=== PATIENT | female | born 1970 | race African-American/Black ===

== ENCOUNTER 2017-01-06 12:41 | Inpatient (IN) | payer MEDICAID, OTHER ==
[~2017-01-06] VITALS: Ht 165.1 cm; Wt 78.2 kg
[2017-01-06] MEDS ORDERED: PARO10TA89 PO (12:59)
[2017-01-06] MEDS ORDERED: ARIP2 PO (12:59)
[2017-01-06] MEDS ORDERED: DIPH25 PO (12:59)
[2017-01-06] MEDS ORDERED: IBUP-1681 PO (12:59)
[2017-01-06] MEDS ORDERED: CLON.5 PO (12:59)
[2017-01-06 13:27] LABS: BASOPHILS % (AUTO) 0.6 % (0.0-2.0); EOSINOPHILS % (AUTO) 1.8 % (1.0-6.0); HEMATOCRIT 36.3 % (36-46); HEMOGLOBIN 11.6 g/dL (12.0-16.0); LYMPHOCYTES # (AUTO) 1.7 K/uL (1.0-4.8); LYMPHOCYTES % (AUTO) 28.3 % (22.0-44.0); MEAN CORPUSCULAR HEMOGLOBIN 24.2 pg (26.0-34.0); MEAN CORPUSCULAR HGB CONC 31.9 G/dL (31.0-37.0); MEAN CORPUSCULAR VOLUME 76 fL (80-100); MONOCYTES # (AUTO) 0.4 K/uL (0.1-1.0); NEUTROPHILS # (AUTO) 3.7 K/uL (1.8-7.7); NEUTROPHILS % (AUTO) 62.3 % (40.0-70.0); PLATELET COUNT (AUTO) 193 K/uL (150-450); RED BLOOD CELL COUNT(AUTO) 4.79 MIL/uL (4.00-5.20); RED CELL DISTRIBUTION WIDTH 19.3 % (11.5-14.5)
[2017-01-06 13:39] LABS: ANION GAP 12 mmol/L (8-16); CALCIUM, TOTAL 8.8 mg/dL (8.8-10.5); CARBON DIOXIDE 25 mmol/L (22-29); CHLORIDE 103 mmol/L (98-107); CREATININE 0.75 mg/dL (0.60-1.30); GLOMERULAR FILTR. RATE CALC > 60 mL/min (>60); POTASSIUM 3.6 mmol/L (3.5-5.1); SODIUM SERUM 140 mmol/L (136-145); UREA NITROGEN, BLOOD 10 mg/dL (7-18)
[2017-01-06 13:43] LABS: ALANINE AMINOTRANSFERASE 27 U/L (12-78); ALBUMIN 3.5 g/dL (3.4-5.0); ASPARTATE AMINOTRANSFERASE 22 U/L (15-37); BILIRUBIN,TOTAL 0.2 mg/dL (0.1-1.0); TOTAL PROTEIN, SERUM 7.7 g/dL (6.4-8.2)
[2017-01-06 13:49] LABS: RBC MORPHOLOGY COMMENT ABNORMAL RBC MORPH
[2017-01-06] MEDS ORDERED: ZOLPIDEM TARTRATE 10 MG TABLET PO PRN (14:15)
[2017-01-06] MEDS ORDERED: HALOPERIDOL 5 MG TABLET PO PRN (14:15)
[2017-01-06 17:37] VITALS: BP 116/79
[2017-01-06 22:00] LABS: APPEARANCE,URINE CLOUDY (CLEAR); GLUCOSE, URINE (UA) NEGATIVE (NEGATIVE); KETONES,URINE NEGATIVE (NEGATIVE); LEUKOCYTE ESTERASE ,URINE NEGATIVE (NEGATIVE); OCCULT BLOOD,URINE LARGE (NEGATIVE); PROTEIN,URINE NEGATIVE (NEGATIVE)
[2017-01-06 22:01] LABS: ADD UA MICROSCOPIC YES
[2017-01-06 22:21] LABS: RBC,URINE 0-2 /HPF (0-2); SQUAMOUS EPITHELIAL CELL,UR Few /LPF (None Seen); WBC,URINE 0-2 /HPF (0-5)
[2017-01-07] MEDS ORDERED: CloNIDine HCL 0.1 MG TABLET PO PRN (08:45)
[2017-01-07] MEDS ORDERED: BENZOCAINE/MENTHOL LOZENGE MM PRN (08:45)
[2017-01-07] MEDS ORDERED: LOPERAMIDE HCL 2 MG CAPSULE PO PRN (08:45)
[2017-01-07] MEDS ORDERED: MAG HYDROX/AL HYDROX/SIMETH ES 30 ML SUSPENSION UDCUP PO PRN (08:45)
[2017-01-07] MEDS ORDERED: PETROLATUM,WHITE 71 GM JELLY TP PRN (08:45)
[2017-01-07] MEDS ORDERED: ACETAMINOPHEN 325 MG TABLET PO PRN (08:45)
[2017-01-07] MEDS ORDERED: ALBUTEROL SULFATE HFA 90 MCG/PUFF 8 GM INHALER IH PRN (08:45)
[2017-01-07] MEDS ORDERED: ONDANSETRON HCL 4 MG TABLET PO PRN (08:45)
[2017-01-07] MEDS ORDERED: BACITRACIN 28.4 GM OINTMENT TP PRN (08:45)
[2017-01-07] MEDS ORDERED: MAGNESIUM HYDROXIDE SUSPENSION 30 ML UDCUP PO PRN (08:45)
[2017-01-07] MEDS ORDERED: IBUPROFEN 600 MG TABLET PO PRN (08:45)
[2017-01-07] MEDS ORDERED: BENZOCAINE/MENTHOL LOZENGE [8 LOZENGES/PACKET] MM PRN (08:48)
[2017-01-07 08:51] VITALS: BP 128/81
[2017-01-07] MEDS: LORazepam 2 MG TABLET PO PRN (10:53)
[2017-01-07 17:01] VITALS: BP 114/73
[2017-01-08 09:02] VITALS: BP 139/90
[2017-01-08] MEDS: LORazepam 2 MG TABLET PO PRN ×2 (09:03→17:55)
[2017-01-08] MEDS ORDERED: DICLOFENAC SODIUM 1% 100 GM GEL [2GM] TP PRN (12:15)
[2017-01-08 17:30] VITALS: BP 133/85
[2017-01-09 07:30] LABS: CHOL/HDL RATIO 2.7 (3.9-5.7)
[2017-01-09] MEDS ORDERED: CITA20TA9 PO (08:16)
[2017-01-09] MEDS ORDERED: CITALOPRAM HYDROBROMIDE 20 MG TABLET PO SCH (09:00)
== END 2017-01-09 14:15 | disposition home or self-care (01) | DRG 754 ==
LOC: EMS 12:41 → 3EI 16:37
PROVIDERS: ADMIT Psychiatry & Neurology Psychiatry; ATTEND Psychiatry & Neurology Psychiatry
DX: F32.9 Major depressive disorder, single episode, unspecified (principal); J44.9 Chronic obstructive pulmonary disease, unspecified; R45.851 Suicidal ideations; F31.9 Bipolar disorder, unspecified; J45.909 Unspecified asthma, uncomplicated; F17.210 Nicotine dependence, cigarettes, uncomplicated; F15.90 Other stimulant use, unspecified, uncomplicated; G47.00 Insomnia, unspecified; F14.90 Cocaine use, unspecified, uncomplicated; F12.90 Cannabis use, unspecified, uncomplicated; M54.5 Low back pain; Y90.4 Blood alcohol level of 80-99 mg/100 ml; F22 Delusional disorders; Z91.5 Personal history of self-harm; Z71.6 Tobacco abuse counseling; Z71.51 Drug abuse counseling and surveillance of drug abuser
CPT/HCPCS: 82306; 83540; 83550; 99285; G0480; J3535